=== PATIENT | male | born 1945 | race Caucasian/White ===

== ENCOUNTER → 2017-12-25 | Outpatient (CLI) | payer BC, MEDICARE | END | disposition home or self-care (01) | LOC: PCVCCLINIC 14:08 | DX: I63.40 Cerebral infarction due to embolism of unspecified cerebral artery (principal); E78.5 Hyperlipidemia, unspecified; I10 Essential (primary) hypertension; Z79.899 Other long term (current) drug therapy; Z79.82 Long term (current) use of aspirin | CPT/HCPCS: 80061; 93005; G0463 ==

== ENCOUNTER → 2018-10-15 | Outpatient (CLI) | payer BC ==
[~2018-10-15] MED LIST: LIDOCAINE 1%/EPI 1:100,000 20 ML VIAL. ONE
--- NOTE | 2018-10-15 17:24 | PCVCINTER ---
APPROVED REPORT Patient Location: Out-Patient Room #: 1 Stress Nurse: Implantable loop recorder Indication: Cryptogenic stroke Full written and informed consent was obtained. Chencho Amin' left chest was prepped and draped in a sterile fashion. A 1 cm incision was made at the fourth intercostal space. A [employer] RX [id number] (SN [id number]) was placed. A single bioabsorbable stitch was placed followed by a sterile dressing. Tolerated procedure well, discharged to home. Conclusion 1. Successful [employer] implantable loop recorder for cryptogenic stroke.
== END | disposition home or self-care (01) ==
LOC: PCVCINTER 12:08
PROVIDERS: ATTEND Internal Medicine
DX: Z45.09 Encounter for adjustment and management of other cardiac device (principal); I10 Essential (primary) hypertension; E78.00 Pure hypercholesterolemia, unspecified; Z86.73 Personal history of transient ischemic attack (TIA), and cerebral infarction without residual deficits; Z98.890 Other specified postprocedural states; Z80.3 Family history of malignant neoplasm of breast; Z82.3 Family history of stroke; Z82.49 Family history of ischemic heart disease and other diseases of the circulatory system; Z72.89 Other problems related to lifestyle; Z79.82 Long term (current) use of aspirin; Z79.899 Other long term (current) drug therapy
CPT/HCPCS: 33282; C1764; J3490